=== PATIENT | female | born 1970 | race Caucasian/White ===

== ENCOUNTER 2016-10-07 15:02 | Emergency (ER) | payer SELFPAY ==
[2016-10-07 15:29] VITALS: TEMP 99; BMI 27.8
--- NOTE | 2016-10-07 15:52 | EDPRACDOC ---
- General Information Stated Complaint: GENERALIZED RASH Time Seen by Provider: 10/07/16 15:44 Information Source: Patient Home Medications: Home Medications Hydroxyzine Pamoate [Vistaril] 25 mg PO Q6 PRN #30 capsule 10/07/16 Prednisone [Deltasone, Orasone] 20 mg PO DAILY #20 tab 10/07/16 Ranitidine [Zantac] 150 mg PO BID #14 tablet 10/07/16 Allergies/Adverse Reactions: Allergies Allergy/AdvReac Type Severity Reaction Status Date / Time aspirin Allergy Hives* Verified 04/29/14 12:55 Penicillins Allergy Hives* Verified 04/29/14 12:55 - History of Present Illness Onset: 2 months HPI: Pt states generalized rash to arms, legs, trunk, back x 2 months. Pt states rash improves at night and returns every morning. C/o fatigue and itching. Denies fever, sore throat, congestion, cough, sob, abd pain, changes in bowel or bladder. Denies new soaps, lotions, detergents, medications, foods. Rash Location: Reports: Generalized Quality: Reports: Pruritic, Red Known Exposure To: Reports: Other (unknown) Relevant History of: Reports: None Irritability: None Pain Severity: None Associated Signs and Symptoms: Reports: None ED Past Medical History - History Reviewed Yes Nurses notes reviewed and agree except as marked - Social Medical History Smoking Status: Current status unknown ETOH: Social Substance Abuse: None EDM Review of Systems - Review of Systems Constitutional: No Symptoms Reported. negative: Fever, Chills, Weakness, Fatigue, Loss of Appetite Ears: No Symptoms Reported. negative: Pain, Hearing Loss, Drainage, Ear Pulling Throat: No Symptoms Reported. negative: Pain, Swelling Nose: No Symptoms Reported. negative: Congestion, Bleeding, Discharge, Injection, Swelling, Deformity, Ecchymosis, Tender, Abrasion, Laceration Mouth: No Symptoms Reported. negative: Pain, Drooling Respiratory: No Symptoms Reported. negative: Cough, Brassy Cough, Barky Cough, Shortness of Breath, Wheezing, Hemoptysis Cardiovascular: No Symptoms Reported. negative: Chest Pain, Palpitations, Syncope, Edema, Orthopnea, PND, Skin Mottling, Cyanosis Gastrointestinal: No Symptoms Reported. negative: Pain, Constipation, Nausea, Vomiting, Diarrhea, Melena, Formula Intolerance Genitourinary: No Symptoms Reported. negative: Dysuria, Hematuria, Frequency, Discharge, Bleeding, Testicular Pain, Neurological: No Symptoms Reported. negative: Headache, Dizziness, Seizure, Numbness, Weakness, Speech Difficulty, Gait Difficulty Musculoskeletal: No Symptoms Reported. negative: Neck, Chestwall, Ribs, Back, Shoulder, Arm, Elbow, Forearm, Wrist, Hand, Pelvis, Hip, Femur, Knee, Leg, Ankle , Foot Integumentary: Itching, Rash Allergic/Immunologic: Hives, Itching Hematologic: No Symptoms Reported. negative: Lymphadenopathy, Easy Bruising, Easy Bleeding Psychiatric: No Symptoms Reported. negative: Anxiety, Depression, Hallucinations, Insomnia, Suicidal - Physical Exam Constitutional: Alert (Awake), No apparent distress Oriented to: Time, Person, Place Last recorded Vital Signs: Last Vital Signs Temp 99.0 F 10/07/16 15:27 Pulse 102 10/07/16 15:27 Resp 20 10/07/16 15:27 BP 132/86 10/07/16 15:27 Pulse Ox 95 10/07/16 15:27 Oxygen Pulse Oxygen Saturation 95 O2 Device Room Air Oxygen Flow Rate Fraction of Inspired Oxygen ( FIO2) - HEENT Head: Normal ( normocephalic) Eye Exam: Normal (PERRL, EOMI, Sclera white) Oropharynx: Normal (Pharynx:Moist without exudate,Gums-no swelling) Tympanic Membrane: Normal ENT EAC: Normal Nose: No Symptoms Reported (septum midline) Neck: Normal (FROM, trachea at midline) - Respiratory/Cardiovascular Respiratory: Normal - CTA (BBS clear to auscultation without adventitious sounds ) Cardiovascular: Normal (RRR without murmur, gallop or rub) - GI Auscultation: Normal (NABS) Palpation: Normal (Soft,No rebound or guarding, non distended) Tenderness: Non tender - Musculoskeletal Back: Normal (Non-Tender) Extremities: Normal (Normal tone, Pulses 2+ No cyanosis or edema, FROM) - Integumentary Skin: Normal, Warm, Dry Lymphatics: Normal (no adenopathy) - Neurologic Memory Impaired: Normal Motor Function: Normal (Normal tone, Pulses 2+ No cyanosis or edema, FROM) Mood Description: Normal Perception: Normal - Differential Diagnosis Other (autoimmune disorder), Atopic dermatitis, Contact dermatitis, Urticaria Decision Time to Discharge: 15:50 - Departure Disposition: Home Condition: Good Final Diagnosis: Allergic reaction, urticaria Instructions: Urticaria (ED) Education/Counseling Given To: Patient Education/Counseling Given Regarding: Diagnosis, Treatment, Follow Up Referrals: Honorio Thomas II, MD [Primary Care Provider] - One Week Clement Bush MD [Staff Physician] - One Week Prescriptions: Hydroxyzine Pamoate [Vistaril] 25 mg PO Q6 PRN #30 capsule PRN Reason: Itching Prednisone [Deltasone, Orasone] 20 mg PO DAILY #20 tab Ranitidine [Zantac] 150 mg PO BID #14 tablet Additional Instructions: Follow up with [facility] to establish PCP and for further evaluation.
[2016-10-07 16:15] VITALS: BP 107/73; PULSE 89
== END 2016-10-07 16:00 | disposition home or self-care (01) ==
LOC: EDMC 15:02
DX: L50.0 Allergic urticaria (principal)
CPT/HCPCS: 99282